=== PATIENT | female | born 1975 | race African-American/Black ===

== ENCOUNTER 2023-03-05 04:38 | Day surgery (SDC) | payer BC ==
[2023-03-04 12:29] VITALS: BMI 33.7
[2023-03-05 10:55] VITALS: RESP 18
[2023-03-05 13:57] VITALS: BP 113/72; PULSE 78; TEMP 98
== END 2023-03-05 13:45 | disposition home or self-care (01) ==
LOC: JASU-ENDO 04:38
PROVIDERS: ATTEND Internal Medicine Gastroenterology
PROC: 0D5K8ZZ Destruction of Ascending Colon, Via Natural or Artificial Opening Endoscopic (ICD-10-PCS; principal; 2023-03-05 12:00)
DX: Z12.11 Encounter for screening for malignant neoplasm of colon (principal); D12.2 Benign neoplasm of ascending colon
CPT/HCPCS: 81025; 88305-TC